=== PATIENT | female | born 1960 | race African-American/Black ===

== ENCOUNTER 2018-11-29 15:01 | Inpatient (IN) | payer OTHER ==
[2018-11-29 15:40] VITALS: BMI 23.6
--- NOTE | 2018-11-29 16:45 | HP ---
CIWA Score Nausea/Vomitin-No Nausea/No Vomiting Muscle Tremors: None Anxiety: 4-Mod. Anxious/Guarded Agitation: 4-Moderately Restless Paroxysmal Sweats: No Perspiration Orientation: 0-Oriented Tacttile Disturbances: 1-Very Mild Itch/Numbness Auditory Disturbances: 2-Mild Harshness/Frighten Visual Disturbances: 2-Mild Sensitivity Headache: 0-None Present CIWA-Ar Total Score: 13 - Admission Criteria OASAS Guidelines: Admission for Medically Managed Detox: Requires at least one of the followin. CIWA greater than 12 2. Seizures within the past 24 hours 3. Delirium tremens within the past 24 hours 4. Hallucinations within the past 24 hours 5. Acute intervention needed for co occurring medical disorder 6. Acute intervention needed for co occurring psychiatric disorder 7. Severe withdrawal that cannot be handled at a lower level of care (continued vomiting, continued diarrhea, abnormal vital signs) requiring intravenous medication and/or fluids 8. Admission [facility] - HPI Allergies/Adverse Reactions: Allergies Allergy/AdvReac Type Severity Reaction Status Date / Time Fish Containing Products Allergy Verified 11/29/18 15:16 No Known Drug Allergies Allergy Verified 11/29/18 15:16 History of Present Illness: pt here requesting detox from etoh and crack cocaine , reports 200 $/day via inhalation x 2 years , prior sobriety x 3 years , first age of bhumika 26 . etoh - 1 pint/day since age 15 , longest sobriety 7 yrs/3 years / 2 years w / NA / AA , latest use 2 days ago , was at [facility] for ETOh use and referred to this facility , given psychiatric meds while in the ER . Denies blackouts , tremors or seizures , strats drinking " any time, i t doesn't make a differnce " , reports irritability if not drinking . pmhx : asthma , htn , sinusitis, OA PSHx : lung CA left 2015 has q 6 mo f/up, latest Feb 2018 @ [facility] , did not go for 6- mo f/up since , knee R arthroscopic psych : bipolar d/o , ptsd , denies SI / Hi tobacco : 1/2 ppd WHEN ASKED ABOUT [facility] ON HOSPITAL D/C PAPERWORK PT STATES " I DON'T HAVE HIV , I DON'T KNOW WHY THEY PUT THAT THERE " Exam Limitations: Clinical Condition - Ebola screening Have you traveled outside of the country in the last 21 days: No (N) Have you had contact with anyone from an Ebola affected area: No Do you have a fever: No - Review of Systems Constitutional: Loss of Appetite EENT: reports: Other (myopia) Respiratory: reports: No Symptoms reported Cardiac: reports: No Symptoms Reported GI: reports: Constipated : reports: No Symptoms Reported Musculoskeletal: reports: Joint Pain (knee pain - chranic , s/p fall , bilateral) Integumentary: reports: No Symptoms Reported Neuro: reports: See HPI Endocrine: reports: No Symptoms Reported Psychiatric: reports: Orientated x3, Agitated, Anxious Patient History - Smoking Cessation Smoking history: Current every day smoker Have you smoked in the past 12 months: Yes Hx Chewing Tobacco Use: No Initiated information on smoking cessation: Yes 'Breaking Loose' booklet given: 11/29/18 - Substances abused Alcohol Substance route: Oral Frequency: Daily Amount used: 1 PINT OF VODKA Age of first use: 15 Date of last use: 11/27/18 Crack Substance route: Smoking Frequency: 3-6 times per week Amount used: $300-$400 Age of first use: 26 Date of last use: 11/27/18 Admission Physical Exam S - Vital Signs Vital Signs: Vital Signs - 24 hr 11/29/18 15:15 Temperature 97.2 F L Pulse Rate 62 Respiratory 20 Rate Blood Pressure 146/83 - Physical General Appearance: Yes: Moderate Distress, Irritable, Anxious HEENTM: Yes: EOMI, Hearing grossly Normal, Normocephalic, Normal Voice Respiratory: Yes: Chest Non-Tender, Lungs Clear, Normal Breath Sounds, No Respiratory Distress, No Accessory Muscle Use Neck: Yes: No masses,lesions,Nodules, Trachea in good position Cardiology: Yes: Regular Rhythm, Regular Rate, S1, S2 Abdominal: Yes: Non Tender, Soft Musculoskeletal: Yes: Gait Steady Extremities: Yes: Normal Inspection, Normal Range of Motion, Non-Tender Neurological: Yes: Fully Oriented, Alert, Motor Strength 5/5 Integumentary: Yes: Warm - Diagnostic (1) Alcohol dependence Current Visit: Yes Status: Chronic Qualifiers: Substance use status: in withdrawal Breathalyzer - Breathalyzer Breathalyzer: 0 Urine Drug Screen - Test Device Lot number: [id number] Expiration date: 07/22/20 - Control Is test valid?: Yes - Results Drug screen NEGATIVE: No Urine drug screen results: [facility]-Cocaine Inpatient Rehab Admission - Rehab Decision to Admit Inpatient rehab admission?: No
[2018-11-29] MEDS ORDERED: hydrOXYzine PAMOATE 25 MG CAPSULE (FP) PO PRN (16:54)
[2018-11-29] MEDS ORDERED: BISMUTH SUBSALICYLATE 524 MG/30 ML UD PO PRN (16:54)
[2018-11-29] MEDS ORDERED: MAGNESIUM CITRATE 300 ML BOTTLE PO PRN (16:54)
[2018-11-29] MEDS ORDERED: MAG HYDROX/AL HYDROX/SIMETH 30 ML UNIT-DOSE CUP PO PRN (16:54)
[2018-11-29] MEDS ORDERED: ACETAMINOPHEN 325 MG TABLET (FP) PO PRN ×2 (16:54)
[2018-11-29] MEDS ORDERED: MENTHOL/PHENOL 1 EACH UD MM PRN (16:54)
[2018-11-29] MEDS ORDERED: MAGNESIUM HYDROX 2400MG/30ML ORAL SUSPENSION 30 ML CUP PO PRN (16:54)
[2018-11-29] MEDS ORDERED: METHOCARBAMOL 500 MG TABLET PO PRN (16:54)
[2018-11-29] MEDS ORDERED: IBUPROFEN 400 MG TABLET (FP) PO PRN (16:54)
[2018-11-29] MEDS ORDERED: diazePAM 5 MG TABLET PO PRN (16:57)
[2018-11-29] MEDS ORDERED: traZODone HCL 100 MG TABLET (FP) PO ONE (21:00)
[2018-11-29] MEDS ORDERED: MELATONIN 5 MG TABLETS PO PRN (22:00)
[2018-11-29] MEDS: THIAMINE HCL 100 MG TABLET (FP) PO SCH (22:07)
[2018-11-29] MEDS: diazePAM 5 MG TABLET PO SCH (22:07)
[2018-11-29] MEDS: TRIAMCINOLONE ACET 0.1% CREAM 15 GM TUBE TP SCH (22:09)
[2018-11-29] MEDS: CLOTRIMAZOLE 1%TOPICAL SOLUTION 30 ML BOTTLE TP SCH (22:09)
[2018-11-29] MEDS: FLUTICASONE PROP 0.05% 16 GM NASAL SPRAY NS SCH (22:09)
[2018-11-29] MEDS: KETOCONOZOLE 2% TOPICAL CREAM 15 GM TUBE TP SCH (22:09)
--- NOTE | 2018-11-29 23:51 | PN ---
S Progress Note Note: Patient reports history of positive PPD Vital Signs Temperature 97.7 F 11/29/18 20:48 Pulse Rate 64 11/29/18 20:48 Respiratory Rate 18 11/29/18 20:48 Blood Pressure 143/77 11/29/18 20:48 O2 Sat by Pulse Oximetry (%) Action: Chest PA & LAT (RAD) ordered
[2018-11-30] MEDS: diazePAM 5 MG TABLET PO SCH ×3 (06:03→21:49)
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
[2018-11-30] MEDS ORDERED: LORATADINE 10 MG TABLET PO PRN (10:00)
[2018-11-30] MEDS: TRIAMCINOLONE ACET 0.1% CREAM 15 GM TUBE TP SCH ×2 (10:52→21:45)
[2018-11-30] MEDS: FLUTICASONE PROP 0.05% 16 GM NASAL SPRAY NS SCH ×2 (10:52→21:45)
[2018-11-30] MEDS: CLOTRIMAZOLE 1%TOPICAL SOLUTION 30 ML BOTTLE TP SCH ×2 (10:52→21:45)
[2018-11-30] MEDS: PRENATAL VITAMINS W/ FOLIC ACID TABLET (FP) PO SCH (10:53)
[2018-11-30] MEDS: KETOCONOZOLE 2% TOPICAL CREAM 15 GM TUBE TP SCH ×2 (11:05→21:52)
[2018-11-30] MEDS: OLANZapine 10 MG TABLET PO SCH ×2 (11:56→21:49)
[2018-11-30 12:01] LABS: HEMATOCRIT 35.7 % (32.4-45.2); HEMOGLOBIN 12.1 GM/dL (10.7-15.3); MCH 34.2 pg (25.7-33.7); MEAN CELL VOLUME 100.8 fl (80-96); PLATELET COUNT 339 K/MM3 (134-434); RBC 3.54 M/mm3 (3.60-5.2); RDW 14.4 % (11.6-15.6); WHITE BLOOD COUNT 4.1 K/mm3 (4.0-10.0)
[2018-11-30 12:18] LABS: ALBUMIN 3.1 g/dl (3.4-5.0); BILIRUBIN,TOTAL 0.2 mg/dL (0.2-1); BLOOD UREA NITROGEN 15.6 mg/dL (7-18); CALCIUM 8.7 mg/dL (8.5-10.1); CREATININE 0.9 mg/dL (0.55-1.3); POTASSIUM 3.8 mmol/L (3.5-5.1); TOT PROT 6.3 g/dl (6.4-8.2)
--- NOTE | 2018-11-30 14:39 | PN ---
S CIWA - CIWA Score Nausea/Vomitin-No Nausea/No Vomiting Muscle Tremors: 3 Anxiety: 3 Agitation: 3 Paroxysmal Sweats: 3 Orientation: 0-Oriented Tacttile Disturbances: 0-None Auditory Disturbances: 0-None Visual Disturbances: 0-None Headache: 0-None Present CIWA-Ar Total Score: 12 S Progress Note (SOAP) Subjective: sweats shakes interrupted sleep irritable Objective: 11/30/18 14:38 Vital Signs Temperature 98.2 F 11/30/18 13:02 Pulse Rate 71 11/30/18 13:02 Respiratory Rate 18 11/30/18 13:02 Blood Pressure 126/72 11/30/18 13:02 O2 Sat by Pulse Oximetry (%) Laboratory Tests 11/30/18 11/30/18 09:12 09:12 WBC 4.1 RBC 3.54 L Hgb 12.1 Hct 35.7 MCV 100.8 H MCH 34.2 H MCHC 34.0 RDW 14.4 Plt Count 339 MPV 8.0 Sodium 142 Potassium 3.8 Chloride 110 H Carbon Dioxide 26 Anion Gap 6 L BUN 15.6 Creatinine 0.9 Est GFR (CKD-EPI)AfAm 82.84 Est GFR (CKD-EPI)NonAf 71.48 Random Glucose 83 Calcium 8.7 Total Bilirubin 0.2 AST 8 L ALT 12 L Alkaline Phosphatase 73 Total Protein 6.3 L Albumin 3.1 L labs noted aaox3 ambulating no acute distress Assessment: 11/30/18 14:39 withdrawals Plan: continue detox increase fluids
[2018-11-30] MEDS: THIAMINE HCL 100 MG TABLET (FP) PO SCH (21:48)
[2018-12-01] MEDS: diazePAM 5 MG TABLET PO SCH ×2 (06:06→17:26)
[2018-12-01] MEDS ORDERED: ERGOCALCIFEROL (VIT D2) 50,000 UNIT (1.25 MG) CAPSULE PO SCH (10:00)
[2018-12-01] MEDS: TRIAMCINOLONE ACET 0.1% CREAM 15 GM TUBE TP SCH ×2 (10:30→22:19)
[2018-12-01] MEDS: KETOCONOZOLE 2% TOPICAL CREAM 15 GM TUBE TP SCH ×2 (10:31→22:21)
[2018-12-01] MEDS: FLUTICASONE PROP 0.05% 16 GM NASAL SPRAY NS SCH ×2 (10:31→22:21)
[2018-12-01] MEDS: CLOTRIMAZOLE 1%TOPICAL SOLUTION 30 ML BOTTLE TP SCH ×2 (10:31→22:21)
[2018-12-01] MEDS: OLANZapine 10 MG TABLET PO SCH ×2 (10:31→22:26)
[2018-12-01] MEDS: PRENATAL VITAMINS W/ FOLIC ACID TABLET (FP) PO SCH (10:31)
--- NOTE | 2018-12-01 14:19 | PN ---
[facility] CIWA - CIWA Score Nausea/Vomitin-No Nausea/No Vomiting Muscle Tremors: 1-None Visible, but [place] Anxiety: 2 Agitation: 2 Paroxysmal Sweats: No Perspiration Orientation: 0-Oriented Tacttile Disturbances: 0-None Auditory Disturbances: 0-None Visual Disturbances: 0-None Headache: 0-None Present CIWA-Ar Total Score: 5 BHS Progress Note (SOAP) Subjective: irritable Objective: 12/01/18 14:06 Vital Signs Temperature 97.5 F L 12/01/18 12:49 Pulse Rate 75 12/01/18 12:49 Respiratory Rate 16 12/01/18 12:49 Blood Pressure 143/94 12/01/18 12:49 O2 Sat by Pulse Oximetry (%) aaox3 ambulating no acute distress Assessment: 12/01/18 14:07 mild withdrawals Plan: continue detox d/c in am
[2018-12-01] MEDS ORDERED: traZODone HCL 100 MG TABLET (FP) PO SCH (22:00)
[2018-12-01] MEDS: THIAMINE HCL 100 MG TABLET (FP) PO SCH (22:26)
[2018-12-02] MEDS ORDERED: diazePAM 5 MG TABLET PO ONE (06:00)
[2018-12-02 09:45] VITALS: BP 126/50; PULSE 74; TEMP 98
--- NOTE | 2018-12-02 09:56 | DS ---
[facility] Detox Discharge Summary Admission Date: 11/29/18 Discharge Date: 12/02/18 - History Present History: Alcohol Dependence, Cocaine Dependence - Physical Exam Results Vital Signs: Vital Signs Temperature 98.0 F 12/02/18 09:44 Pulse Rate 74 12/02/18 09:44 Respiratory Rate 16 12/02/18 09:44 Blood Pressure 126/50 L 12/02/18 09:44 O2 Sat by Pulse Oximetry (%) Pertinent Admission Physical Exam Findings: pt arrived in withdrawals Laboratory Tests 11/30/18 11/30/18 11/30/18 09:12 09:12 09:12 WBC 4.1 RBC 3.54 L Hgb 12.1 Hct 35.7 MCV 100.8 H MCH 34.2 H MCHC 34.0 RDW 14.4 Plt Count 339 MPV 8.0 Sodium 142 Potassium 3.8 Chloride 110 H Carbon Dioxide 26 Anion Gap 6 L BUN 15.6 Creatinine 0.9 Est GFR (CKD-EPI)AfAm 82.84 Est GFR (CKD-EPI)NonAf 71.48 Random Glucose 83 Calcium 8.7 Total Bilirubin 0.2 AST 8 L ALT 12 L Alkaline Phosphatase 73 Total Protein 6.3 L Albumin 3.1 L RPR Titer Nonreactive pt is aaox3 ambulating no acute distress no s/s of withdrawals - Treatment Hospital Course: Detox Protocol Followed, Detoxed Safely, Responded well, Discharged Condition Good, Rehab Referral Accepted Patient has Accepted a Rehab Referral to: pt declined rehab; referral provided - Medication Discharge Medications: Ambulatory Orders Clotrimazole [Lotrimin 1% Solution -] 1 applic TP BID 11/29/18 Cyclobenzaprine HCl 10 mg PO DAILY 11/29/18 Emtricitabine/Tenofovir (Tdf) [Truvada 200 mg-300 mg Tablet] 1 each PO DAILY 10/10 Ergocalciferol (Vitamin D2) [Drisdol] 50,000 unit PO WEEKLY 11/29/18 Fluticasone Prop 0.05% Nasal [Flonase -] 1 - 2 spray NS BID 11/29/18 Ketoconazole 2% Cream [Nizoral 2% Cream -] 1 applic TP BID 11/29/18 Loratadine 10 mg PO DAILY 11/29/18 Olanzapine 10 mg PO BID 11/29/18 Trazodone HCl 300 mg PO HS 11/29/18 Triamcinolone 0.1% Cream [Aristocort 0.1%] 15 gm NR BID 11/29/18 - Diagnosis (1) Cocaine dependence Current Visit: Yes Status: Chronic Qualifiers: Substance use status: uncomplicated Qualified Code(s): F14.20 - Cocaine dependence, uncomplicated (2) Substance induced mood disorder Current Visit: Yes Status: Acute (3) Substance-induced sleep disorder Current Visit: Yes Status: Acute (4) Uncomplicated alcohol dependence Current Visit: Yes Status: Chronic (5) Arthritis Current Visit: Yes Status: Chronic (6) Bipolar II disorder Current Visit: Yes Status: Chronic (7) Bronchial asthma Current Visit: Yes Status: Chronic (8) HTN (hypertension) Current Visit: Yes Status: Chronic (9) Nicotine dependence Current Visit: Yes Status: Chronic Qualifiers: Nicotine product type: cigarettes Substance use status: uncomplicated Qualified Code(s): F17.210 - Nicotine dependence, cigarettes, uncomplicated (10) PTSD (post-traumatic stress disorder) Current Visit: Yes Status: Chronic - AMA Did Patient Leave Against Medical Advice: No
[2018-12-02] MEDS: PRENATAL VITAMINS W/ FOLIC ACID TABLET (FP) PO SCH (10:18)
[2018-12-02] MEDS: KETOCONOZOLE 2% TOPICAL CREAM 15 GM TUBE TP SCH (10:45)
[2018-12-02] MEDS: CLOTRIMAZOLE 1%TOPICAL SOLUTION 30 ML BOTTLE TP SCH (10:45)
[2018-12-02] MEDS: FLUTICASONE PROP 0.05% 16 GM NASAL SPRAY NS SCH (10:45)
[2018-12-02] MEDS: TRIAMCINOLONE ACET 0.1% CREAM 15 GM TUBE TP SCH (10:45)
[2018-12-02] MEDS: OLANZapine 10 MG TABLET PO SCH (12:18)
== END 2018-12-02 12:28 | disposition home or self-care (01) | DRG 774 ==
LOC: YASAS 15:01 → Y6N 17:19
PROVIDERS: ADMIT Allergy & Immunology; ATTEND Allergy & Immunology
PROC: HZ2ZZZZ Detoxification Services for Substance Abuse Treatment (ICD-10-PCS; principal; 2018-11-29)
DX: F10.230 Alcohol dependence with withdrawal, uncomplicated (principal); F14.20 Cocaine dependence, uncomplicated; F17.210 Nicotine dependence, cigarettes, uncomplicated; F31.81 Bipolar II disorder; F19.282 Other psychoactive substance dependence with psychoactive substance-induced sleep disorder; F19.24 Other psychoactive substance dependence with psychoactive substance-induced mood disorder; F43.10 Post-traumatic stress disorder, unspecified; I10 Essential (primary) hypertension; J45.909 Unspecified asthma, uncomplicated; M12.9 Arthropathy, unspecified; R76.11 Nonspecific reaction to tuberculin skin test without active tuberculosis; M25.561 Pain in right knee; M25.562 Pain in left knee; Z91.013 Allergy to seafood
CPT/HCPCS: 36415; 71046-TC-FY; 80053; 85027; 86593